=== PATIENT | male | born 1970 | race Caucasian/White ===

== ENCOUNTER → 2017-06-14 | Outpatient (REF) | payer OTHER ==
[~2017-06-14] MED LIST: DOCU-416 PO; IBUP-2708 PO; MULT1CAP59 PO; OXYC-865 PO; none reported
== END ==
LOC: ZZSENDIN 12:15
PROVIDERS: ATTEND Surgery
DX: L82.1 Other seborrheic keratosis (principal)
CPT/HCPCS: 88305